=== PATIENT | male | born 1980 | race Caucasian/White ===

== ENCOUNTER 2022-02-17 12:56 | Emergency (ER) | payer MEDICAID, OTHER, SELFPAY ==
[2022-02-17 13:09] VITALS: BP 170/116; BP 198/130; PULSE 102; PULSE 109; RESP 18; TEMP 36.5; O2SAT 99; BMI 31.8
--- NOTE | 2022-02-17 13:15 | PC.NURSE ---
patient a/ox4 . no . heart rate regular at 97 beats per minute . lungs clear throughout . skin pink warm and dry . patient reports c/o of dizziness that he went to [facility] and was treated for hypertension of 198/130 that was not resolved . sent here by [facility] . patient denies headaches or chest pain . abdomen is soft . positive bowel sounds in all quadrants . Iv placed in left A.C . Labs sent for analysis . EKG done and read by Dr. Stovall . patient aware of plan of care .
--- NOTE | 2022-02-17 13:24 | ECG_ITS ---
Test Reason : Dizziness Blood Pressure : / mmHG Vent. Rate : 099 BPM Atrial Rate : 099 BPM P-R Int : 168 ms QRS Dur : 096 ms QT Int : 358 ms P-R-T Axes : 053 -10 045 degrees QTc Int : 459 ms Normal sinus rhythm Intra-ventricular conduction delay ST elevation in Septal leads Abnormal ECG When compared with ECG of 04-AUG-2014 23:56, ST more elevated in Septal leads Referred By: Marilia Carvalho Electronically Signed By:TRISTAN HIGHTOWER MD
--- NOTE | 2022-02-17 13:24 | ED.GENADULT ---
HPI - General Adult General Chief complaint: General Medical Stated complaint: HYPERTENSION,DIZZY Time Seen by Provider: 02/17/22 13:23 Source: patient and EMS Mode of arrival: EMS Limitations: no limitations History of Present Illness HPI narrative: 41-year-old male with HTN and DM presents to the ER for evaluation of dizziness and hypertension. He went to the [facility] clinic today for dizziness evaluation and was found to have a blood pressure of 195/129. He states he is usually on 40 mg of lisinopril but he stopped taking it about a week ago due to side effects that he attributed to this medication; he was having nauseous and vomiting from the med so he stopped. He reports yesterday he developed dizziness, worse with movement. He went to the [facility] today for evaluation where he was noted to be severely hypertensive. He denied any headache or vision changes. He was given clonidine 0.1 mg and sent to the ER for further evaluation. On arrival to the ER blood pressure 170/110 and his dizziness has resolved. He denies any focal weakness, numbness, tingling. No chest pain or shortness of breath. MD complaint: Dizziness and hypertension Onset (ago): day(s) (1) Location: head Radiation: non-radiation Severity: moderate Pain Consistency: now resolved Relieving factors: none Exacerbating factors: movement Associated symptoms: denies other symptoms Treatments prior to arrival: none Related Data Previous Rx's Medication Instructions Recorded lisinopril 40 mg tablet 40 mg PO DAILY #30 tabs 02/17/22 Allergies Allergy/AdvReac Type Severity Reaction Status Date / Time Unable to Assess Allergy Verified 02/17/22 13:43 Review of Systems Review of Systems: Constitutional: No Fever, No Chills ENT/Mouth: No sore throat, No Rhinorrhea, No Swallowing Difficulty, No otalgia Eyes: No Eye Pain, No Swelling, No Redness Cardiovascular: No Chest Pain, No SOB, No Orthopnea, No Edema Respiratory: No Cough, No Sputum, No Wheezing, No dyspnea Gastrointestinal: No Nausea, No Vomiting, No Diarrhea, No abdominal Pain Genitourinary: No Dysuria, No Urinary Frequency, No Hematuria Musculoskeletal: No joint pain, No Myalgias Skin: No Skin Lesions, No rash Neuro: No Weakness, No Numbness, + Dizziness, No Headache Psych: No Anxiety/Panic, No Depression Heme/Lymph: No Bruising, No Lymphadenopathy Endocrine: No Polyuria, No Polydipsia PMFSH Social History Social History Advance Directives: No Advance Directives Information Provided: Yes Physical Exam ED Vital Signs: Vital Signs - 24 hr 02/17/22 13:09 02/17/22 14:25 02/17/22 16:00 Temperature 97.7 F 98.6 F Pulse Rate 102 H 92 94 Respiratory Rate 18 18 20 Blood Pressure 170/116 H 140/100 H 154/95 H Pulse Oximetry 99 98 99 Oxygen Delivery Method Room Air Room Air Room Air BMI result Body Mass Index 31.8 Appearance: Alert. Oriented X3. No acute distress. Eyes: Pupils equal, round and reactive to light. No nystagmus, EOMI. ENT: Pharynx normal. Neck: Normal inspection. Neck supple. CVS: Normal heart rate and rhythm. Pulses normal. Respiratory: No respiratory distress. Breath sounds normal. Abdomen: Soft and nontender. +BS x4 Skin: Skin warm and dry. Normal skin color. Normal skin turgor. No rashes. Extremities: No lower extremity edema. Neuro: Oriented X 3. No motor deficit. No sensory deficit. Steady gait. Course Course Course Narrative: 41-year-old male with a history of hypertension and diabetes, poorly controlled, who presents to the ER for evaluation dizziness and hypertension. This is in the setting of lisinopril noncompliance. Blood pressure 176/110 on arrival. Will check basic lab workup, EKG and give low dose of labetalol. Will reassess. Reevaluation(s) Reevaluation #1: Labs showing elevation of transaminases, bilirubin and alk-phos. He NO mild right upper quadrant tenderness to deep palpation. He admits to signficant alcohol abuse and dependence. He drinks 6-12 beers per day, last drink was yesterday. He states I am an alcoholic and I want help. Blood pressure improved 140/90. Continues to be dizziness free. sustainability coach to come in tonight at 6pm to discuss detox options. Reevaluation #2: sustainability coach discussed detox with the patient and options and resources were given. There is a bed available however patient does not want to take it at this time. He has 2 small kids at home and he has a job at a restaurant. He was given outpatient resources and importance of abstinence was discussed. He will restart his lisinopril for blood pressure control. We discussed abstaining from alcohol also help his diabetes. At this time, will discharge home with plan to restart his lisinopril. He well follow-up with outpatient detox services. Stable for DC Medications Administered Discontinued Medications Generic Name Dose Route Start Last Admin Trade Name Juan PRN Reason Stop Dose Admin Labetalol HCl 10 mg 02/17/22 13:24 02/17/22 13:43 Labetalol Hcl 100 Mg/20 Ml Vial IVPUSH 02/17/22 13:25 10 mg ONCE ONE Administration Medical Decision Making Lab Data Result diagrams: 02/17/22 16:17 02/17/22 13:29 Labs: Lab Results 02/17/22 02/17/22 02/17/22 Range/Units 13:29 13:29 16:17 WBC 10.8 (4.8-10.8) X10*3/uL RBC 4.55 L (4.60-5.80) X10*6/uL Hgb 15.4 (14.0-18.0) g/dl Hct 43.1 (42.0-52.0) % MCV 94.7 (80.0-98.0) fL MCH 33.8 H (27.0-33.0) pg MCHC 35.7 (31.0-36.0) g/dl RDW 11.1 (11.0-16.0) % Plt Count 202 (160-400) X10*3/uL MPV 9.5 (9.4-12.4) fL Immature Gran % (Auto) 0.3 (0.0-0.4) % Neut % (Auto) 66.3 (45-73) % Lymph % (Auto) 20.1 (20-40) % Walton % (Auto) 11.3 H (2-11) % Eos % (Auto) 0.6 (0-4) % Baso % (Auto) 1.4 (0-2) % Lymph # (Auto) 2.2 (1.2-4.9) X10*3/uL Walton # (Auto) 1.2 (0.1-1.2) X10*3/uL Eos # (Auto) 0.1 (0.0-0.4) X10*3/uL Baso # (Auto) 0.2 (0.0-0.2) X10*3/uL Abs Immat Gran (auto) 0.03 (0.00-0.03) X10*3/uL Absolute Neuts (auto) 7.2 (2.0-8.3) x10*3/uL Absolute Nucleated RBC 0.000 (0.0-0.012) X10*3/uL Nucleated RBC % (auto) 0.0 (0.0-0.2) /100WBC Sodium 133 L (135-145) mmol/L Potassium 4.3 (3.3-5.1) mmol/L Chloride 96 (96-108) mmol/L Carbon Dioxide 21 L (22-29) mmol/L Anion Gap 20 (12-20) BUN 7 L (9-16) mg/dL Creatinine 0.78 (0.5-1.4) mg/dL Estim Creat Clear Calc 120.6 Estimated GFR > 60 Random Glucose 286 H (60-115) mg/dL Calcium 9.7 (8.4-10.2) mg/dL Magnesium 1.9 (1.6-2.6) mg/dL Total Bilirubin 1.3 H (0.0-1.0) mg/dL Direct Bilirubin 0.6 H (0.0-0.5) mg/dL AST 148 H (5-37) U/L ALT 82 H (0-40) U/L Alkaline Phosphatase 131 H (39-117) U/L Troponin I High Sens < 3.5 (<3.5-35.0) ng/L Total Protein 8.0 (6.5-8.0) g/dL Albumin 4.5 (3.5-5.0) g/dL Lipase 63 (8-78) U/L Urine Opiates Screen (Not Detect) Urine Fentanyl Screen (Not Detect) Ur Barbiturates Screen (Not Detect) Ur Phencyclidine Scrn (Not Detect) Ur Amphetamines Screen (Not Detect) U Benzodiazepines Scrn (Not Detect) Urine Cocaine Screen (Not Detect) U Marijuana (THC) Screen (Not Detect) 02/17/22 Range/Units 16:25 WBC (4.8-10.8) X10*3/uL RBC (4.60-5.80) X10*6/uL Hgb (14.0-18.0) g/dl Hct (42.0-52.0) % MCV (80.0-98.0) fL MCH (27.0-33.0) pg MCHC (31.0-36.0) g/dl RDW (11.0-16.0) % Plt Count (160-400) X10*3/uL MPV (9.4-12.4) fL Immature Gran % (Auto) (0.0-0.4) % Neut % (Auto) (45-73) % Lymph % (Auto) (20-40) % Walton % (Auto) (2-11) % Eos % (Auto) (0-4) % Baso % (Auto) (0-2) % Lymph # (Auto) (1.2-4.9) X10*3/uL Walton # (Auto) (0.1-1.2) X10*3/uL Eos # (Auto) (0.0-0.4) X10*3/uL Baso # (Auto) (0.0-0.2) X10*3/uL Abs Immat Gran (auto) (0.00-0.03) X10*3/uL Absolute Neuts (auto) (2.0-8.3) x10*3/uL Absolute Nucleated RBC (0.0-0.012) X10*3/uL Nucleated RBC % (auto) (0.0-0.2) /100WBC Sodium (135-145) mmol/L Potassium (3.3-5.1) mmol/L Chloride (96-108) mmol/L Carbon Dioxide (22-29) mmol/L Anion Gap (12-20) BUN (9-16) mg/dL Creatinine (0.5-1.4) mg/dL Estim Creat Clear Calc Estimated GFR Random Glucose (60-115) mg/dL Calcium (8.4-10.2) mg/dL Magnesium (1.6-2.6) mg/dL Total Bilirubin (0.0-1.0) mg/dL Direct Bilirubin (0.0-0.5) mg/dL AST (5-37) U/L ALT (0-40) U/L Alkaline Phosphatase (39-117) U/L Troponin I High Sens (<3.5-35.0) ng/L Total Protein (6.5-8.0) g/dL Albumin (3.5-5.0) g/dL Lipase (8-78) U/L Urine Opiates Screen Not Detected (Not Detect) Urine Fentanyl Screen Not Detected (Not Detect) Ur Barbiturates Screen Not Detected (Not Detect) Ur Phencyclidine Scrn Not Detected (Not Detect) Ur Amphetamines Screen Not Detected (Not Detect) U Benzodiazepines Scrn Not Detected (Not Detect) Urine Cocaine Screen Not Detected (Not Detect) U Marijuana (THC) Screen Not Detected (Not Detect) ECG Data Attestation: I personally reviewed and interpreted this ECG as follows: Interpretation: Normal sinus rhythm, ventricular rate 99 beats per minute, normal MS interval, normal QTC, no change from prior back in 2015. No ST segment elevations or depressions per Critical Care Time Critical Care Time Critical Care Time: No Discharge Plan Discharge Clinical Impression: Hypertension Patient Disposition: Still a Patient Instructions: Hypertension (ED), Alcohol Use Disorder (ED), Hypertension and Diabetes (ED) Additional Instructions: It is important that you take your blood pressure medication every day. Decrease your carbs and sugars. Stop drinking alcohol. Recommend detox. Call the numbers provided to see if there are detox beds available. Stopping drinking alcohol Prescriptions: New lisinopril 40 mg tablet 40 mg PO DAILY Qty: 30 0RF Referrals: Keke Arriaga MD [Primary Care Provider] - (poorly controlled, HTN, DM, alcoholism )
[2022-02-17] MEDS: Labetalol HCL 100 MG/20 ML VIAL 10 MG IVPUSH (13:43)
--- NOTE | 2022-02-17 13:50 | PC.NURSE ---
Patient administered labetalol as ordered by provider . patient tolerated well . patient continues on cardiac monitoring at bedside . patient aware of plan of care .
[2022-02-17 13:56] LABS: Alanine Aminotransferase 82 U/L (0-40); Albumin Level 4.5 g/dL (3.5-5.0); Alkaline Phosphatase 131 U/L (39-117); Anion Gap 20 (12-20); Aspartate Amino Transferase 148 U/L (5-37); Bilirubin Direct 0.6 mg/dL (0.0-0.5); Bilirubin Total 1.3 mg/dL (0.0-1.0); Blood Urea Nitrogen 7 mg/dL (9-16); Calcium 9.7 mg/dL (8.4-10.2); Carbon Dioxide 21 mmol/L (22-29); Chloride 96 mmol/L (96-108); Creatinine Clr Calc Pharmacy 120.6; Estimated Glomerular Filt Rate > 60; Glucose Random 286 mg/dL (60-115); Magnesium 1.9 mg/dL (1.6-2.6); Potassium 4.3 mmol/L (3.3-5.1); Sodium 133 mmol/L (135-145)
[2022-02-17 14:08] LABS: Troponin-I High Sensitivity < 3.5 ng/L (<3.5-35.0)
[2022-02-17 14:25] VITALS: BP 140/100; PULSE 92; RESP 18; O2SAT 98
[2022-02-17 14:33] LABS: Lipase 63 U/L (8-78)
[2022-02-17 16:00] VITALS: BP 154/95; PULSE 94; RESP 20; TEMP 37; O2SAT 99
--- NOTE | 2022-02-17 16:00 | PC.NURSE ---
patient requesting to talk to [employer] academic coach about detox form ETOH . patient reports drinking a 12 pack a day and now that his blood pressure is under control he would like to focus on his alcohol consumption . [facility] team contacted and referral made . patient aware of plan of care .
--- NOTE | 2022-02-17 16:12 | PC.NURSE ---
this pct assume care of pt at 1500 ,vs taken ,patient said he is not able to give urine sample at this time ,surinder villeda is aware .
--- NOTE | 2022-02-17 16:21 | PC.NURSE ---
pt lab draw and urine sample send to lab by this pct ,pt was davida ,rn ronal said pt could eat ,pt had crackers and jackeline octavio for snack .
[2022-02-17 16:23] LABS: Basophils Absolute Auto 0.2 X10*3/uL (0.0-0.2); Basophils Percent Auto 1.4 % (0-2); Eosinophils Absolute Auto 0.1 X10*3/uL (0.0-0.4); Eosinophils Percent Auto 0.6 % (0-4); Hematocrit 43.1 % (42.0-52.0); Hemoglobin 15.4 g/dl (14.0-18.0); Imm Gran Abs Auto 0.03 X10*3/uL (0.00-0.03); Imm Gran Pct Auto 0.3 % (0.0-0.4); Lymphocytes Absolute Auto 2.2 X10*3/uL (1.2-4.9); Lymphocytes Percent Auto 20.1 % (20-40); Mean Corpuscular HGB Conc 35.7 g/dl (31.0-36.0); Mean Corpuscular Hemoglobin 33.8 pg (27.0-33.0); Mean Corpuscular Volume 94.7 fL (80.0-98.0); Mean Platelet Volume 9.5 fL (9.4-12.4); Monocytes Absolute Auto 1.2 X10*3/uL (0.1-1.2); Monocytes Percent Auto 11.3 % (2-11); Neutrophils Absolute Auto 7.2 x10*3/uL (2.0-8.3); Neutrophils Percent Auto 66.3 % (45-73); Platelet Count 202 X10*3/uL (160-400); Red Blood Count 4.55 X10*6/uL (4.60-5.80); Red Cell Distribution Width 11.1 % (11.0-16.0); White Blood Count 10.8 X10*3/uL (4.8-10.8)
[2022-02-17 16:41] LABS: Amphetamine Screen Urine Not Detected (Not Detect); Barbiturates, Urine Not Detected (Not Detect); Benzodiazepines Screen Urine Not Detected (Not Detect); Cannabinoid Screen Urine Not Detected (Not Detect); Cocaine Screen Urine Not Detected (Not Detect); Fentanyl, urine Not Detected (Not Detect); Opiate Screen Urine Not Detected (Not Detect); Phencyclidine Screen Urine Not Detected (Not Detect)
--- NOTE | 2022-02-17 16:46 | PC.NURSE ---
Domenic from Care team at bedside to discuss treatment options for ETOH detox with patient and . patient aware of plan of care .
--- NOTE | 2022-02-17 16:58 | MHC.RECOVSUP ---
? Reason for consult Recovery Support o Current location: ED21 o Identified substance use concern: Alcohol - Withdrawal - Support ? Intervention: o Community resources provided o Harm reduction discussion ? Plan: o Patient to follow up with [facility] after discharge ? Additional information: Met with Patient and we talk about detox and how they work... Client wants to go to a Detox but cant at the moment due to having kids he need to go home to.. but will go in the near future..
--- NOTE | 2022-02-17 18:22 | PC.NURSE ---
patient a/ox4 . went over discharge instructions as ordered by provider . patient given education on new hypertension medication . patient to follow up with primary care . no questions at this time .
== END 2022-02-17 18:25 | disposition still patient (30) ==
PROVIDERS: Physician Assistant; Emergency Provider Emergency Medicine; PCP Family Medicine
DX: R42 Dizziness and giddiness (principal); I10 Essential (primary) hypertension; E11.9 Type 2 diabetes mellitus without complications; Z91.14 Patient's other noncompliance with medication regimen; Z79.899 Other long term (current) drug therapy
CPT/HCPCS: 36415; 80048; 80076; 80307; 83690; 83735; 84484; 85025; 93005; 96374; 99284

== ENCOUNTER 2022-02-21 11:26 | Outpatient (REF) | payer MEDICAID, OTHER, SELFPAY ==
--- NOTE | ~2022-02-21 | XR_ITS ---
EXAMINATION: XR FOOT, RIGHT CLINICAL INFORMATION: Pain right fifth toe COMPARISON: None TECHNIQUE: AP, lateral, and oblique views of the right foot. FINDINGS: Probable old healed injury head 5th toe proximal phalanx. No visible acute fracture line or acute disrupted cortex or periostitis. No subluxation or dislocation. 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 The retrocalcaneal recess is preserved. Subtalar joint is normal. Midfoot unremarkable. XR/XR foot RT min 3V IMPRESSION: -Probable old healed injury 5th toe proximal phalanx. Clinically correlate. -No visible acute fracture, subluxation, or periostitis.
== END 2022-02-21 11:27 | disposition home or self-care (01) ==
LOC: HO.XRAY 11:26
PROVIDERS: PCP Family Medicine; Visit Provider Emergency Medicine
DX: L03.031 Cellulitis of right toe (principal); M79.674 Pain in right toe(s)
CPT/HCPCS: 73630